=== PATIENT | male | born 1975 | race Caucasian/White ===

== ENCOUNTER 2017-08-28 22:58 | Emergency (ER) | payer BC ==
[2017-08-28 23:12] VITALS: PULSE 106; TEMP 99.8; BMI 31.4
[2017-08-28] MEDS ORDERED: morphine CARPU-JECT 10 MG/1 ML DISP.SYRIN IVPUSH ONE (23:18)
--- NOTE | 2017-08-28 23:19 | PDOC ---
History of Present Illness - General Chief Complaint: Pain, Acute Stated Complaint: ABDOMINAL PAIN - History of Present Illness Initial Comments: 08/29/17 00:51 presents with 5 hours of worsening abd pain RLQ no radiation a/w bloating, n/v hx of diverticulitis. feels different. childhood hernia repair feels feverish pmh: denies psh: hernia repair, l side ros: reviewed and otherwise negative o/e GENERAL: [The patient is awake, alert, and fully oriented, and in no apparent distress.] HEAD: [Normal with no signs of trauma.] EYES: [Pupils equal, round and reactive to light, extraocular movements intact, sclera anicteric, conjunctiva are normal.] ENT: [TMs normal, nares patent, oropharynx clear without exudates. Moist mucous membranes.] NECK: [Normal range of motion, supple without lymphadenopathy, JVD, or masses.] LUNGS: [Breath sounds equal, clear to auscultation bilaterally. No wheezes, and no crackles.] HEART: [Regular rate and rhythm, normal S1 and S2 without murmur, rub or gallop.] ABDOMEN: [+tender] : no acute findings EXTREMITIES: [Normal range of motion, no edema. No clubbing or cyanosis. No cords, erythema, or tenderness.] NEUROLOGICAL: [Cranial nerves II through XII grossly intact. Normal speech, normal gait.] PSYCH: [Normal mood, normal affect.] SKIN: [Warm, Dry, normal turgor, no rashes or lesions noted.] Past History - Past Medical History Allergies/Adverse Reactions: Allergies Allergy/AdvReac Type Severity Reaction Status Date / Time No Known Allergies Allergy Verified 05/22/16 14:23 Home Medications: Ambulatory Orders Cholecalciferol (Vitamin D3) [Vitamin D3] 1,000 unit PO DAILY 05/22/16 L.acidoph,Paracasei, B.lactis [Probiotic] 1 each PO DAILY 05/22/16 Multivitamin with Iron [Daily Keerthi with Iron] 1 each PO DAILY 05/22/16 Polyethylene Glycol 3350 [Miralax 119 gm Btl -] 17 gm PO DAILY PRN 05/22/16 Ciprofloxacin [Cipro (Restricted To Id)] 500 mg PO Q12H #20 tablet 08/29/17 Metronidazole [Flagyl -] 500 mg PO TID #30 tablet 08/29/17 Oxycodone HCl/Acetaminophen [Percocet 5-325 mg Tablet] 1 tab PO Q6H PRN #6 tablet MDD 4 tabs 08/29/17 Anemia: No Asthma: No Cancer: No Cardiac Disorders: No CVA: No COPD: No CHF: No Dementia: No Diabetes: No GI Disorders: Yes (DIVERTICULITIS) Disorders: No HTN: No Hypercholesterolemia: No Liver Disease: No Seizures: No Thyroid Disease: No - Surgical History Abdominal Surgery: Yes (HERNIA AN ) Appendectomy: No Cardiac Surgery: No Cholecystectomy: No Lung Surgery: No Neurologic Surgery: No Orthopedic Surgery: No - Suicide/Smoking/Psychosocial Hx Smoking History: Never smoked Have you smoked in the past 12 months: No Hx Alcohol Use: Yes (OCCASIONAL) Drug/Substance Use Hx: No Substance Use Type: None Hx Substance Use Treatment: No *Physical Exam - Vital Signs Last Vital Signs Temp Pulse Resp BP Pulse Ox 99.8 F H 106 H 18 159/109 98 08/28/17 23:06 08/28/17 23:06 08/28/17 23:06 08/28/17 23:06 08/28/17 23:06 ED Treatment Course - LABORATORY CBC & Chemistry Diagram: 08/28/17 23:19 08/28/17 23:19 Medical Decision Making - Medical Decision Making 08/29/17 01:50 diverticulitis abx analgesia *DC/Admit/Observation/Transfer Diagnosis at time of Disposition: Diverticulitis - Discharge Dispostion Disposition: HOME Condition at time of disposition: Stable - Prescriptions Prescriptions: Ciprofloxacin [Cipro (Restricted To Id)] 500 mg PO Q12H #20 tablet Metronidazole [Flagyl -] 500 mg PO TID #30 tablet Oxycodone HCl/Acetaminophen [Percocet 5-325 mg Tablet] 1 tab PO Q6H PRN #6 tablet MDD 4 tabs PRN Reason: Pain - Referrals - Patient Instructions Printed Discharge Instructions: DI for Diverticulitis - Post Discharge Activity
[2017-08-28] MEDS ORDERED: morphine CARPU-JECT 10 MG/1 ML DISP.SYRIN ONE (23:20)
[2017-08-28 23:25] LABS: PH,URINE 6.5 (4.5-8); URINE APPEARANCE Clear; URINE BILIRUBIN Negative (NEGATIVE); URINE GLUCOSE (UA) Negative (NEGATIVE); URINE KETONE Negative (NEGATIVE); URINE LEUK ESTERASE Negative (NEGATIVE); URINE NITRITE Negative (NEGATIVE); URINE PROTEIN Negative (NEGATIVE); URINE UROBILINOGEN 0.2 (0.2-1.0)
[2017-08-28 23:26] LABS: URINE BLOOD Trace-intact (NEGATIVE); URINE COLOR YELLOW
[2017-08-28 23:31] LABS: URINE RBC 0-1 /hpf (0-3)
[2017-08-28 23:33] LABS: BASOPHIL 3.3 % (0-2.0); EOSINOPHIL 0.2 % (0-4.5); MCH 27.6 pg (25.7-33.7); MCHC 32.6 g/dl (32.0-35.9); MEAN CELL VOLUME 84.7 fl (80-96); MEAN PLT VOLUME 8.9 fl (7.5-11.1); NEUTROPHILS 83.9 % (42.8-82.8); PLATELET COUNT 248 K/MM3 (134-434); RDW 13.1 % (11.9-15.9); WHITE BLOOD COUNT 18.1 K/mm3 (4.0-10.8)
[2017-08-28 23:42] LABS: ALBUMIN 4.6 g/dl (3.5-5.0); ALK PHOS 54 U/L (32-92); ANION GAP 9 (8-16); BILIRUBIN,TOTAL 0.6 mg/dl (0.2-1.0); CALCIUM 9.4 mg/dl (8.4-10.2); CO2 24 mmol/L (22-28); CREATININE 1.1 mg/dl (0.6-1.3); GLUCOSE,RANDOM 111 mg/dl (74-106); SGOT/AST 33 U/L (10-42); SGPT/ALT 52 U/L (10-40); TOT PROT 7.8 g/dl (6.4-8.3)
[2017-08-29] MEDS ORDERED: CIPROFLOXACIN 500 MG TABLET (RESTRICTED TO ID) PO ONE (01:46)
[2017-08-29] MEDS ORDERED: metroNIDAZOLE 250 MG TABLET PO ONE (01:47)
[2017-08-29] MEDS ORDERED: CIPROFLOXACIN 250 MG TABLET (RESTRICTED TO ID) PO ONE (01:47)
[2017-08-29] MEDS ORDERED: metroNIDAZOLE 250 MG TABLET ONE (01:47)
[2017-08-29 01:54] VITALS: BP 149/91
== END 2017-08-29 01:54 | disposition home or self-care (01) ==
LOC: FER 22:58
PROC: 3E0333Z Introduction of Anti-inflammatory into Peripheral Vein, Percutaneous Approach (ICD-10-PCS; principal; 2017-08-28)
DX: K57.92 Diverticulitis of intestine, part unspecified, without perforation or abscess without bleeding (principal)
CPT/HCPCS: 36415; 74177-TC; 80053; 81003; 81015; 83690; 85025; 99283-25

== ENCOUNTER 2018-04-14 07:09 | Emergency (ER) | payer BC ==
--- NOTE | 2018-04-14 07:19 | PDOC ---
History of Present Illness - General Chief Complaint: Bite Stated Complaint: RT WRIST BEE STING Time Seen by Provider: 04/14/18 07:19 History Source: Patient Exam Limitations: No Limitations - History of Present Illness Initial Comments: 04/14/18 07:22 Mr Raza is a 42 yo RHD M with a h/o diverticulitis who presents to the ER with a complaint of right hand pain and swelling s/p bee sting yesterday Yesterday, the site looked fine, but when he awoke this morning it was very swollen He has been stung by a bee in the past, with no reaction and pt reports no prior anaphylaxis No fevers or chills No local erythema or itching He has taken Claritin for swelling and Motrin for pain Pt is confident it was a bee (he saw it after the sting) PMH: Diverticulitis PSH: Denies Meds: No chronic medications ALL: NKDA Social: FH: non contributory GENERAL/CONSTITUTIONAL: No: fever, chills, weakness, loss of appetite. HEAD, EYES, EARS, NOSE AND THROAT: No: change in vision, ear pain, discharge, sore throat, throat swelling. CARDIOVASCULAR: No: chest pain, lightheadedness, palpitations, syncope RESPIRATORY: No: cough, shortness of breath, wheezing, hemoptysis, stridor. GASTROINTESTINAL: No: nausea, vomiting, diarrhea, abdominal cramping, rectal bleeding, constipation. GENITOURINARY: No: dysuria, hematuria, frequency, urgency, flank pain. MUSCULOSKELETAL: Yes: hand swelling No: back pain, neck pain SKIN: Yes: bruising No: lesions, pallor, rash or easy bruising. NEUROLOGIC: No: headache, vertigo, paresthesias, weakness GENERAL: The patient is in no acute distress. HEAD: Normal EYES: PERRLA, EOMI, sclera anicteric, conjunctiva clear. ENT: Uvula midline, Moist mucous membranes. NECK: Normal range of motion LUNGS: Breath sounds equal, clear to auscultation bilaterally. No wheezes, and no crackles. HEART:Regular rate and rhythm, normal S1 and S2 without murmur, rub or gallop. ABDOMEN: Soft, nontender, normoactive bowel sounds. EXTREMITIES: Right hand: hand is swollen, swelling extends to the forearm, no erythema area where stink occurred is blistered 2+ RP, 2+ UP sensation in tact R/M/U motor in tact Compartment soft, no crepitus NEUROLOGICAL: Cranial nerves II through XII grossly intact. Normal speech. No focal neurological deficits. MUSCULOSKELETAL: Back non-tender to palpation SKIN: Are the location where the bee stung patient, he has a 1.5 cm area of blistering No warmth Skin is pink, not erythematous No drainage 04/14/18 07:34 04/14/18 07:38 04/14/18 08:37 Past History - Past Medical History Allergies/Adverse Reactions: Allergies Allergy/AdvReac Type Severity Reaction Status Date / Time No Known Allergies Allergy Verified 04/14/18 07:11 Home Medications: Ambulatory Orders Cephalexin Monohydrate [Keflex -] 500 mg PO Q6H #28 capsule 04/14/18 Ibuprofen [Advil -] 400 mg PO PRN PRN 04/14/18 Loratadine [Claritin] 10 mg PO ONCE PRN 04/14/18 predniSONE [Deltasone -] 60 mg PO DAILY #12 tablet 04/14/18 Anemia: No Asthma: No Cancer: No Cardiac Disorders: No CVA: No COPD: No CHF: No Dementia: No Diabetes: No GI Disorders: Yes (DIVERTICULITIS) Disorders: No HTN: No Hypercholesterolemia: No Liver Disease: No Seizures: No Thyroid Disease: No - Surgical History Abdominal Surgery: Yes (HERNIA AN ) Appendectomy: No Cardiac Surgery: No Cholecystectomy: No Lung Surgery: No Neurologic Surgery: No Orthopedic Surgery: No - Suicide/Smoking/Psychosocial Hx Smoking History: Never smoked Have you smoked in the past 12 months: No Hx Alcohol Use: Yes (OCCASIONAL) Drug/Substance Use Hx: No Substance Use Type: None Hx Substance Use Treatment: No Medical Decision Making - Medical Decision Making 04/14/18 07:36 Pt stung by bee, no prior allergic reaction Pt with significant hand and forearm swelling Pt compartments still soft. good perfusion Will give: keflex Prednisone Pt should ice and elevate hand Low threshold to admit if outpt therapy does not work Xray performed, no radioopaque foreign body seen, no air in the soft tissues seen Clinical impression: allergic reaction to Bee sting, initial presentation *DC/Admit/Observation/Transfer Diagnosis at time of Disposition: Bee sting reaction Qualifiers: Encounter type: initial encounter Injury intent: accidental or unintentional Qualified Code(s): T63.441A - Toxic effect of venom of bees, accidental ( unintentional), initial encounter - Discharge Dispostion Disposition: HOME Condition at time of disposition: Stable Decision to Admit order: No - Prescriptions Prescriptions: Cephalexin Monohydrate [Keflex -] 500 mg PO Q6H #28 capsule predniSONE [Deltasone -] 60 mg PO DAILY #12 tablet - Referrals - Patient Instructions Printed Discharge Instructions: How to Care for an Insect Bite or Sting, DI for Insect Bites and Stings Additional Instructions: Mr Raza Please read the attached instructions. Please be sure to follow up with your primary care physician within 2 days Please take Prednisone and Keflex as prescribed Please apply ice and elevate as much as possible Please monitor for fevers and chills Please monitor for increased swelling If you notice any other these things, please return to the ER, you may need to be admitted - Post Discharge Activity Forms/Work/School Notes: Back to Work
[2018-04-14 07:47] VITALS: BP 158/113; PULSE 93; TEMP 98.7; BMI 30.8
[2018-04-14] MEDS ORDERED: predniSONE 20 MG TABLET (UD) PO ONE (07:47)
[2018-04-14] MEDS ORDERED: CEPHALEXIN MONOHYDRATE 500 MG CAPSULE (UD) PO ONE (07:47)
[2018-04-14] MEDS ORDERED: predniSONE 20 MG TABLET (UD) ONE (07:51)
[2018-04-14] MEDS ORDERED: CEPHALEXIN MONOHYDRATE 500 MG CAPSULE (UD) ONE (07:51)
== END 2018-04-14 08:43 | disposition home or self-care (01) ==
LOC: FER 07:09
DX: T63.441A Toxic effect of venom of bees, accidental (unintentional), initial encounter (principal); Y92.9 Unspecified place or not applicable; R22.31 Localized swelling, mass and lump, right upper limb; M25.531 Pain in right wrist
CPT/HCPCS: 73090-TC-RT-FY; 73130-TC-RT-FY; 99282-25